=== PATIENT | female | born 1995 | race African-American/Black ===

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

== ENCOUNTER 2018-08-04 15:22 | Emergency (ER) | payer OTHER ==
[~2018-08-04] VITALS: Ht 165.1 cm; Wt 77.1 kg
[~2018-08-04 15:22] MED LIST changes: +CIPR500T94 PO; +FLUC150T PO; -LISD20CA3 PO; +LISD20CA4 PO; +METR500T PO
[2018-08-04 15:39] VITALS: BP 121/72
[2018-08-04 15:53] LABS: BILIRUBIN,URINE NEGATIVE (NEG); CLARITY,URINE CLEAR; COLOR,URINE YELLOW; NITRITE,URINE NEGATIVE (NEG); PH,URINE 5.5; PROTEIN,URINE NEGATIVE (NEG-TRACE)
[2018-08-04 16:04] LABS: BACTERIA,URINE MODERATE /HPF (0-FEW); RBC,URINE 0 /HPF (0-2); SQUAMOUS EPITHELIAL CELL,UR MANY /LPF; WBC,URINE >40 /HPF (0-4)
[2018-08-04] MEDS ORDERED: CEPH500T PO (16:16)
[2018-08-04] MEDS ORDERED: ONDA4TAB12 PO (16:16)
--- NOTE | 2018-08-04 16:16 | PHYS DOC ---
Past Medical History Past Medical History: Other Additional Past Medical Histor: ADHD Past Surgical History: No Surgical History Alcohol Use: None Drug Use: None Adult General Chief Complaint Chief Complaint: NAUSEA/VOMITING/DIARRHA HPI HPI Patient is a 23 year old female who presents to the ED today complaining of intermittent episodes of nausea for 2 weeks. Patient states she believes she has urinary tract infection, she states she tried taking [id number] medications with no relief. Denies any chance she is . Patient denies any abdominal pain. Denies vomiting Review of Systems Review of Systems Constitutional: Denies fever or chills [] Eyes: Denies change in visual acuity, redness, or eye pain [] HENT: Denies nasal congestion or sore throat [] Respiratory: Denies cough or shortness of breath [] Cardiovascular: No additional information not addressed in HPI [] GI: Nausea for 2 weeks. Denies abdominal pain, nausea, bloody stools or diarrhea [] : Concern she could have urinary tract infection. Denies dysuria or hematuria [] Musculoskeletal: Denies back pain or joint pain [] Integument: Denies rash or skin lesions [] Neurologic: Denies headache, focal weakness or sensory changes []Endocrine: Denies polyuria or polydipsia [] All other systems were reviewed and found to be within normal limits, except as documented in this note. Allergies Allergies Allergies Coded Allergies Type Severity Reaction Last Updated Verified No Known Drug Allergies 04/04/13 No Physical Exam Physical Exam Constitutional: Well developed, well nourished, no acute distress, non-toxic appearance. [] HENT: Normocephalic, atraumatic, bilateral external ears normal, oropharynx moist, no oral exudates, nose normal. [] Eyes: PERRLA, EOMI, conjunctiva normal, no discharge. [] Neck: Normal range of motion, no tenderness, supple, no stridor. [] Cardiovascular:Heart rate regular rhythm, no murmur [] Lungs & Thorax: Bilateral breath sounds clear to auscultation [] Abdomen: Bowel sounds normal, soft, no tenderness, no masses, no pulsatile masses. [] Skin: Warm, dry, no erythema, no rash. [] Back: No tenderness, no CVA tenderness. [] Extremities: No tenderness, no cyanosis, no clubbing, ROM intact, no edema. [] Neurologic: Alert and oriented X 3, normal motor function, normal sensory function, no focal deficits noted. [] Psychologic: Affect normal, judgement normal, mood normal. [] Current Patient Data Vital Signs Vital Signs Date Time Temp Pulse Resp B/P (MAP) Pulse Ox O2 Delivery O2 Flow Rate FiO2 08/04/18 15:39 98.1 109 18 121/72 (88) 100 Room Air 98.1 Lab Values Laboratory Tests Test 08/04/18 15:32 08/04/18 15:38 Urine Collection Type Unknown Urine Color Yellow Urine Clarity Clear Urine pH 5.5 Urine Specific [place] 1.015 Urine Protein Negative mg/dL (NEG-TRACE) Urine Glucose (UA) Negative mg/dL (NEG) Urine Ketones (Stick) Negative mg/dL (NEG) Urine Blood Negative (NEG) Urine Nitrite Negative (NEG) Urine Bilirubin Negative (NEG) Urine Urobilinogen Dipstick 1.0 mg/dL (0.2 mg/dL) Urine Leukocyte Esterase Moderate (NEG) Urine RBC 0 /HPF (0-2) Urine WBC >40 /HPF (0-4) Urine Squamous Epithelial Cells Many /LPF Urine Bacteria Moderate /HPF (0-FEW) POC Urine HCG, Qualitative Hcg negative (Negative) EKG EKG [] Radiology/Procedures Radiology/Procedures [] Course & Med Decision Making Course & Med Decision Making Pertinent Labs and Imaging studies reviewed. (See chart for details) This is a 23-year-old female patient presenting to the ED today concerned she could have UTI, has had nausea for 2 weeks, negative test. Positive for UTI. Discharged on cephalexin and Zofran. Instructed to push fluids. Follow- up with PCP in 1-2 weeks. Dragon Disclaimer Dragon Disclaimer This electronic medical record was generated, in whole or in part, using a voice recognition dictation system. Departure Departure Impression: Primary Impression: UTI (urinary tract infection) Additional Impression: Vomiting with nausea, not intractable Disposition: 01 HOME, SELF-CARE Condition: STABLE Referrals: ADDIE TOMAS MD (PCP) follow up in 1-2 weeks Patient Instructions: Nausea, Child, Urinary Tract Infection Additional Instructions: You were evaluated in the emergency room and noted to have urinary tract infection, we put you on antibiotics, ensure you complete them. Please take Zofran as needed for nausea or vomiting. Scripts Cephalexin (CEPHALEXIN) 500 Mg Tablet 1 TAB PO BID, #14 TAB Prov: ASHAJOANNA STAFF ANALYST 08/04/18 Ondansetron (ONDANSETRON ODT) 4 Mg Tab.rapdis 1 TAB PO PRN Q6-8HRS, #16 TAB Prov: SHAKEELJOANNA Reynolds STAFF ANALYST 08/04/18 Problem Qualifiers Primary Impression: UTI (urinary tract infection) Urinary tract infection type: site unspecified Hematuria presence: without hematuria Qualified Codes: N39.0 - Urinary tract infection, site not specified Additional Impression: Vomiting with nausea, not intractable Vomiting type: unspecified Qualified Codes: R11.2 - Nausea with vomiting, unspecified ASHAJOANNA STAFF ANALYST Aug 04, 2018 16:16
== END 2018-08-04 16:21 | disposition home or self-care (01) ==
LOC: ER 15:22
DX: N39.0 Urinary tract infection, site not specified (principal); R11.2 Nausea with vomiting, unspecified
CPT/HCPCS: 81001; 81025; 87086; 99284

== ENCOUNTER 2019-06-27 11:11 | Emergency (ER) | payer MEDICAID, OTHER ==
[~2019-06-27] VITALS: Ht 167.6 cm; Wt 86.3 kg
[~2019-06-27 11:11] MED LIST changes: +CEPH500T PO; +ONDA4TAB12 PO
[2019-06-27 11:56] LABS: BILIRUBIN,URINE NEGATIVE (NEG); CLARITY,URINE CLEAR; COLOR,URINE YELLOW; NITRITE,URINE NEGATIVE (NEG); PROTEIN,URINE NEGATIVE (NEG-TRACE); UROBILINOGEN,URINE 0.2 mg/dL (0.2 mg/dL)
[2019-06-27 12:01] VITALS: BP 114/64
[2019-06-27 12:14] LABS: BACTERIA,URINE MODERATE /HPF (0-FEW); RBC,URINE 0 /HPF (0-2); SQUAMOUS EPITHELIAL CELL,UR MANY /LPF
[2019-06-27] MEDS ORDERED: METR70GE2 VG (12:59)
--- NOTE | 2019-06-27 13:00 | PHYS DOC ---
Past Medical History Past Medical History: Other Additional Past Medical Histor: ADHD Past Surgical History: No Surgical History Smoking Status: Never Smoker Alcohol Use: None Drug Use: None Adult General Chief Complaint Chief Complaint: VAGINAL PROBLEM HPI HPI Patient is a 24 year old female who presents with patient states around 2 weeks ago she went to the clinic and because she was having vaginal discharge with an odor and itching. She states that she was checked for sexual transmitted diseases she was found to have none. She states her boyfriend just got checked also and he was found to have none. States that she was put on Flagyl for bacterial vaginosis and she has since finished that antibiotic but she states she is still having the vaginal discharge and itching. Review of Systems Review of Systems : Vaginal itching and discharge. Denies dysuria or hematuria [] All other systems were reviewed and found to be within normal limits, except as documented in this note. Allergies Allergies Allergies Coded Allergies Type Severity Reaction Last Updated Verified No Known Drug Allergies 04/04/13 No Physical Exam Physical Exam Constitutional: Well developed, well nourished, no acute distress, non-toxic appearance. [] HENT: Normocephalic, atraumatic, bilateral external ears normal, oropharynx moist, no oral exudates, nose normal. [] Eyes: PERRLA, EOMI, conjunctiva normal, no discharge. [] Neck: Normal range of motion, no tenderness, supple, no stridor. [] Cardiovascular:Heart rate regular rhythm, no murmur [] Lungs & Thorax: Bilateral breath sounds clear to auscultation [] Abdomen: Bowel sounds normal, soft, no tenderness, no masses, no pulsatile masses. [] Skin: Warm, dry, no erythema, no rash. [] Back: No tenderness, no CVA tenderness. [] Extremities: No tenderness, no cyanosis, no clubbing, ROM intact, no edema. [] Neurologic: Alert and oriented X 3, normal motor function, normal sensory func tion, no focal deficits noted. [] Psychologic: Affect normal, judgement normal, mood normal. Normal Physical Exam [] Current Patient Data Vital Signs Vital Signs Date Time Temp Pulse Resp B/P (MAP) Pulse Ox O2 Delivery O2 Flow Rate FiO2 06/27/19 12:01 98.3 79 16 114/64 (81) 98 Room Air 98.3 Lab Values Laboratory Tests Test 06/27/19 11:15 06/27/19 11:30 Urine Color Yellow Urine Clarity Clear Urine pH 8.0 (<5.0-8.0) Urine Specific [place] 1.020 (1.000-1.030) Urine Protein Negative mg/dL (NEG-TRACE) Urine Glucose (UA) Negative mg/dL (NEG) Urine Ketones (Stick) Negative mg/dL (NEG) Urine Blood Negative (NEG) Urine Nitrite Negative (NEG) Urine Bilirubin Negative (NEG) Urine Urobilinogen Dipstick 0.2 mg/dL (0.2 mg/dL) Urine Leukocyte Esterase Large (NEG) Urine RBC 0 /HPF (0-2) Urine WBC 5-10 /HPF (0-4) Urine Squamous Epithelial Cells Many /LPF Urine Bacteria Moderate /HPF (0-FEW) Urine Mucus Marked /LPF POC Urine HCG, Qualitative Hcg negative (Negative) Microbiology 06/27/19 Wet Prep - Final, Complete EKG EKG [] Radiology/Procedures Radiology/Procedures [] Course & Med Decision Making Course & Med Decision Making Pertinent Labs and Imaging studies reviewed. (See chart for details) Alert and oriented. Speaks in full clear sentences. Ambulatory with steady gait. Skin pink warm and dry. Abdomen is soft and nontender. Patient denies nausea, vomiting, abdominal pain, headache, dizziness, chest pain, shortness of air, cough, fever, dysuria, back pain. And refuses any treatment for gonorrhea and chlamydia at this time. She is educated that she will be called in 48 hours if it is positive only. Urinalysis is contaminated. Pelvic Exam: Mingle Operator present Abdomen: Nontender External Genitalia: Normal Skin Speculum: Normal vaginal mucosa, white cervical discharge Bimanual: No adnexal masses or tenderness, No CMT [] Dragon Disclaimer Dragon Disclaimer This electronic medical record was generated, in whole or in part, using a voice recognition dictation system. Departure Departure Impression: Primary Impression: Bacterial vaginosis Disposition: HOME, SELF-CARE Condition: STABLE Referrals: NO PCP (PCP) Patient Instructions: Bacterial Vaginosis, [id number] Additional Instructions: Remember that you will be called in 48 hours only if your chlamydia or gonorrhea come back positive. Take medication as prescribed. Follow-up with virtualization consultant or primary care provider. Scripts Metronidazole (METRONIDAZOLE) 70 Gm Gel.w.appl 1 APPFUL VG QHS for 5 Days, #70 GM Prov: JAIME POMPA APRN 06/27/19 JAIME POMPA APRN Jun 27, 2019 13:00
[2019-06-28 19:09] LABS: GC PROBE Negative (Negative)
== END 2019-06-27 13:12 | disposition home or self-care (01) ==
LOC: ER 11:11
DX: N89.8 Other specified noninflammatory disorders of vagina (principal); L29.8 Other pruritus
CPT/HCPCS: 81001; 81025; 87086; 87491; 87591; 99284; Q0111

== ENCOUNTER 2020-09-01 19:09 | Emergency (ER) | payer MEDICAID ==
[~2020-09-01] VITALS: Ht 167.6 cm; Wt 100.0 kg
[~2020-09-01 19:09] MED LIST changes: +METR70GE2 VG
[2020-09-01 20:02] LABS: BILIRUBIN,URINE NEGATIVE (NEG); CLARITY,URINE CLOUDY; COLOR,URINE YELLOW; NITRITE,URINE NEGATIVE (NEG); PROTEIN,URINE NEGATIVE (NEG-TRACE)
[2020-09-01 20:07] LABS: BACTERIA,URINE FEW /HPF (0-FEW); RBC,URINE 0 /HPF (0-2)
[2020-09-01 20:15] VITALS: BP 110/53
--- NOTE | 2020-09-01 20:29 | PHYS DOC ---
Past Medical History Past Medical History: Other Additional Past Medical Histor: ADHD (JAIME POMPA TAI CHI INSTRUCTOR) Past Surgical History: No Surgical History (JAIME POMPA TAI CHI INSTRUCTOR) Smoking Status: Never Smoker Alcohol Use: None Drug Use: None (JAIME POMPA APRN) General Adult EDM: Chief Complaint: COUGH HPI: HPI: Patient is a 25 year old female who presents with cough and body aches for the last couple of days. She denies chest pain, chest tightness, abdominal pain, nausea, vomiting, diarrhea, fever, nasal he has had a throat pain, ear pain, dizziness, headache, syncope, shortness of breath. Patient denies any past medical history. She denies any pain. (JAIME POMPA TAI CHI INSTRUCTOR) Review of Systems: Review of Systems: Constitutional: Denies fever or chills. [] Eyes: Denies change in visual acuity. [] HENT: Denies nasal congestion or sore throat. [] Respiratory: + cough or denies shortness of breath. [] Cardiovascular: Denies chest pain or edema. [] GI: Denies abdominal pain, nausea, vomiting, bloody stools or diarrhea. [] : Denies dysuria. [] Musculoskeletal: Denies back pain or joint pain. + Generalized body aches [] Integument: Denies rash. [] Neurologic: Denies headache, focal weakness or sensory changes. [] Endocrine: Denies polyuria or polydipsia. [] Lymphatic: Denies swollen glands. [] Psychiatric: Denies depression or anxiety. [] (JAIME POMPA TAI CHI INSTRUCTOR) Heart Score: C/O Chest Pain: No Risk Factors: Risk Factors: DM, Current or recent (<one month) smoker, HTN, HLP, family history of CAD, obesity. Risk Scores: Score 0 - 3: 2.5% MACE over next 6 weeks - Discharge Home Score 4 - 6: 20.3% MACE over next 6 weeks - Admit for Clinical Observation Score 7 - 10: 72.7% MACE over next 6 weeks - Early Invasive Strategies (JAIME POMPA TAI CHI INSTRUCTOR) Allergies: Allergies: Allergies Coded Allergies Type Severity Reaction Last Updated Verified No Known Drug Allergies 04/04/13 No (JAIME POMPA TAI CHI INSTRUCTOR) Physical Exam: PE: Constitutional: Well developed, well nourished, no acute distress, non-toxic appearance. [] HENT: Normocephalic, atraumatic, bilateral external ears normal, oropharynx moist, no oral exudates, nose normal. [] Eyes: PERRLA, EOMI, conjunctiva normal, no discharge. [] Neck: Normal range of motion, no tenderness, supple, no stridor. [] Cardiovascular:Heart rate regular rhythm, no murmur [] Lungs & Thorax: Bilateral breath sounds clear to auscultation [] Abdomen: Bowel sounds normal, soft, no tenderness, no masses, no pulsatile masses. [] Skin: Warm, dry, no erythema, no rash. [] Back: No tenderness, no CVA tenderness. [] Extremities: No tenderness, no cyanosis, no clubbing, ROM intact, no edema. [] Neurologic: Alert and oriented X 3, normal motor function, normal sensory function, no focal deficits noted. [] Psychologic: Affect normal, judgement normal, mood normal. Normal physical exam [] (JAIME POMPA APRN) Current Patient Data: Labs: Laboratory Tests Test 09/01/20 19:47 09/01/20 19:50 Urine Collection Type Unknown Urine Color Yellow Urine Clarity Cloudy Urine pH 6.0 (<5.0-8.0) Urine Specific [place] 1.025 (1.000-1.030) Urine Protein Negative mg/dL (NEG-TRACE) Urine Glucose (UA) Negative mg/dL (NEG) Urine Ketones (Stick) Negative mg/dL (NEG) Urine Blood Negative (NEG) Urine Nitrite Negative (NEG) Urine Bilirubin Negative (NEG) Urine Urobilinogen Dipstick 1.0 mg/dL (0.2 mg/dL) Urine Leukocyte Esterase Small (NEG) Urine RBC 0 /HPF (0-2) Urine WBC 5-10 /HPF (0-4) Urine Squamous Epithelial Cells Many /LPF Urine Bacteria Few /HPF (0-FEW) Urine Mucus Marked /LPF POC Urine HCG, Qualitative Hcg negative (Negative) Vital Signs: Vital Signs Date Time Temp Pulse Resp B/P (MAP) Pulse Ox O2 Delivery O2 Flow Rate FiO2 09/01/20 19:45 97.5 108 131/81 (98) 99 97.5 5/18/21 19:29 20 Room Air (BAFUS,JAIME M TAI CHI INSTRUCTOR) EKG: EKG: [] (JAIME POMPA APRN) Radiology/Procedures: Radiology/Procedures: [] Impression: [facility] [address] [place] [address] IMAGING REPORT Signed PATIENT: LUIS WATERMAN ACCOUNT: [id number] : 1995 LOCATION: ER AGE: 25 SEX: F EXAM STATUS: REG ER ORD. PHYSICIAN: JAIME POMPA APRN REASON: soa, cough PROCEDURE: PORTABLE CHEST 1V EXAMINATION: XR CHEST 1V CLINICAL HISTORY: Shortness of breath, cough EXAM DATE/TIME: 09/01/2020 8:16 PM COMPARISON: None FINDINGS: Lines, Tubes, and Devices: None. Cardiomediastinal Silhouette: Within normal limits. Lungs and Pleura: No evidence of focal airspace consolidation or pleural effusion. Pulmonary vasculature unremarkable. Bones and Soft Tissues: No acute osseous abnormality. IMPRESSION: No evidence of acute cardiopulmonary abnormality. Electronically signed by: Sherif Dupree DO (09/01/2020 9:01 PM) [facility] CENTERDUPREE DICTATED and SIGNED BY: SHERIF DUPREE DO DATE: 09/01/20 [id number] 0 (JAIME POMPA APRN) Course & Med Decision Making: Course & Med Decision Making Pertinent Labs and Imaging studies reviewed. (See chart for details) COVID-19 CRITERIA: The patient was evaluated during the global COVID-19 pandemic, and that diagnosis was suspected/considered upon their initial presentation. Their evaluation, treatment and testing was consistent with current guidelines for patients who present with complaints or symptoms that may be related to COVID-19. See HPI. Alert and oriented x4. Ambulatory with a steady gait. Speaks in full clear sentences. Skin pink warm and dry. Afebrile. Abdomen is soft and nontender. Lungs are clear to all station all lobes. Blood work unremarkable. Chest x-ray shows no acute findings. Urinalysis shows contamination. [] (JAIME POMPA APRN) Course & Med Decision Making I oversaw on the above date of service of this patient. I agree with the findings, plan of care, and disposition as documented. Electronically signed, Florinda Avelar DO (FLORINDA AVELAR DO) Barbara Disclaimer: Barbara Disclaimer: This electronic medical record was generated, in whole or in part, using a voice recognition dictation system. (JAIME POMPA APRN) COVID-19 Patient Risks: Age 65 or older: No Sign of co-morbidity: Yes Exp to person + for COVID: No Exp to PUI: No Travel from affected area: No Lower respiratory symptoms: Yes Fever: No Other: No (JAIME POMPA APRN) PPE Use: Full PPE with N95 mask or PAPR: Yes (JAIME POMPA APRN) Departure Departure Impression: Primary Impression: Cough Disposition: HOME / SELF CARE / HOMELESS Condition: STABLE Referrals: NO PCP (PCP) Patient Instructions: Cough, Adult Additional Instructions: Follow-up with your primary care physician. Take medication as prescribed and with food. Take Tylenol if you have any pain. Drink plenty of fluids. Scripts Albuterol Sulfate (PROAIR HFA INHALER) 8.5 Gm Hfa.aer.ad 1 PUFF INH PRN Q6HRS PRN for SHORTNESS OF BREATH, #1 EACH 0 Refills Prov: JAIME POMPA APRN 09/01/20 Methylprednisolone (MEDROL) 4 Mg Tab.ds.pk 1 PKG PO UD, #1 PKG Prov: JAIME POMPA APRN 09/01/20 JAIME POMPA APRN September 01, 2020 20:29 FLORINDA AVELAR DO September 04, 2020 09:55
--- NOTE | 2020-09-01 21:04 | RAD ---
EXAMINATION: XR CHEST 1V CLINICAL HISTORY: Shortness of breath, cough EXAM DATE/TIME: 09/01/2020 8:16 PM COMPARISON: None FINDINGS: Lines, Tubes, and Devices: None. Cardiomediastinal Silhouette: Within normal limits. Lungs and Pleura: No evidence of focal airspace consolidation or pleural effusion. Pulmonary vasculat ure unremarkable. Bones and Soft Tissues: No acute osseous abnormality. IMPRESSION: No evidence of acute cardiopulmonary abnormality. Electronically signed by: Sherif Perez DO (09/01/2020 9:01 PM) BHARAT
[2020-09-01] MEDS ORDERED: METH4TAB2 PO (21:17)
[2020-09-01] MEDS ORDERED: ALBU2.5V8 INH (21:17)
--- NOTE | 2020-09-02 16:00 | NUR ---
IP: Informed pt of negative COVID results. Pt verbalized understanding.
== END 2020-09-01 21:30 | disposition home or self-care (01) ==
LOC: ER 19:09
DX: R05 Cough (principal); M79.10 Myalgia, unspecified site; F90.9 Attention-deficit hyperactivity disorder, unspecified type; Z20.822 Contact with and (suspected) exposure to COVID-19
CPT/HCPCS: 71045; 81001; 81025; 87086; 99284; U0003; U0005